=== PATIENT | female | born 1990 | race African-American/Black ===

== ENCOUNTER 2017-08-20 11:24 | Emergency (ER) | payer SELFPAY ==
[2017-08-20] MEDS ORDERED: NA CHLORIDE 0.9% 1,000 ML ONE (12:09)
[2017-08-20] MEDS ORDERED: ONDANSETRON 4 MG/2 ML VIAL ONE (12:09)
[2017-08-20 12:47] LABS: Barbiturates NEGATIVE; Benzodiazepines NEGATIVE; Bicarbonate 26 mEq/L (21-31); Cocaine NEGATIVE; Glucose Level 89 mg/dL (65-120); METHAMPHETAM NEGATIVE; Opiates NEGATIVE; Phencyclidine NEGATIVE; Potassium 3.5 mEq/L (3.6-5.0); Sodium Level 140 mEq/L (135-145); THC Cannibis POSITIVE
[2017-08-20 12:48] LABS: Absolute Lymphocytes (CBC) 2.2 K/uL (0.7-4.9); Absolute Monocytes 0.5 K/uL (0.1-1.3); Absolute Neutrophil 7.2 K/uL (1.8-8.0); BUN Blood Urea Nitrogen 7 mg/dL (6-20); Basophils % 0.4 % (0-1.3); Eosinophils % 1.2 % (0-4.4); Hematocrit 47.6 % (36.0-45.0); Lymphocytes % 21.7 % (15.3-44.8); MCH 32.9 pg (27.0-35.0); MPV 8.6 fL (7.6-11.3); Monocytes % 5.4 % (3.3-12.3); RBC Red Blood Cell Count 4.81 M/uL (3.86-4.86)
[2017-08-20 13:11] LABS: Alcohol Serum/Plasma 25 mg/dl
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
[2017-08-20 14:01] LABS: Urine Blood NEGATIVE (NEG); Urine Glucose NEGATIVE (NEG); Urine Protein 1+ (NEG); Urine Specific Gravity 1.025 (1.005-1.030)
== END 2017-08-20 13:57 | disposition home or self-care (01) ==
LOC: ER 11:24
DX: R11.2 Nausea with vomiting, unspecified (principal); F17.210 Nicotine dependence, cigarettes, uncomplicated
CPT/HCPCS: 36415; 80048; 80307; 80320; 81003; 81025; 85025; 96374; 99284; J2405; J7030